=== PATIENT | male | born 1960 | race African-American/Black ===

== ENCOUNTER 2017-05-30 17:26 | Emergency (ER) | payer OTHER ==
[~2017-05-30] VITALS: Ht 167.6 cm; Wt 70.0 kg
[2017-05-30 17:32] VITALS: BP 110/65; PULSE 72; RESP 18; TEMP 97.9; O2SAT 100
[2017-05-30 17:36] VITALS: BP 110/65; PULSE 75; RESP 18; TEMP 97.9; O2SAT 99
[2017-05-30] MEDS ORDERED: PROPARACAINE HCL 0.5% OPHT SOLN 15 ML BTL LEFT EYE ONE (18:30)
[2017-05-30] MEDS ORDERED: FLUORESCEIN SOD 1 MG STRIP LEFT EYE ONE (18:30)
[2017-05-30] MEDS ORDERED: ERYTOIN10 LEFT EYE (18:58)
--- NOTE | 2017-05-30 18:58 | PD ---
HPI Chief Complaint: Eye Problems/Injury Time Seen by Provider: 18:16 Travel History International Travel<30 days: No Contact w/Intl Traveler<30days: No Traveled to known affect area: No History of Present Illness HPI Patient is a 57 year old male who comes in complaining of irritation to his left eye. He says that he was driving with his window open and he felt something get into his eye. He says he tried to flush his eye, but still feels like something is in it. He denies any change in his vision. He denies any other complaints. Severity is mild. PFSH Past Medical History Diminished Hearing: No Tetanus Vaccination: > 5 Years Influenza Vaccination: No ?: Not Social History Alcohol Use: Yes (2 BEERS DAILY) Tobacco Use: Yes (45 PACK YEARS) Substance Use: Yes (MARIJUANA) Allergies-Medications (Allergen,Severity, Reaction): Coded Allergies: No Known Allergies (Verified Adverse Reaction, Unknown, 05/30/17) Reported Meds & Prescriptions Reported Meds & Active Scripts Active No Active Prescriptions or Reported Medications Review of Systems General / Constitutional: No: Fever Eyes: Positive: Foreign Body Sensation, No: Blurred Vision, Visual changes HENT: No: Headaches, Lightheadedness Cardiovascular: No: Chest Pain or Discomfort Respiratory: No: Shortness of Breath Gastrointestinal: No: Nausea, Vomiting Skin: No Rash, No Change in Pigmentation Neurologic: No: Weakness, Dizziness Physical Exam Narrative GENERAL: Awake and alert, in no acute distress. SKIN: Focused skin assessment warm/dry. HEAD: Atraumatic. Normocephalic. EYES: Pupils equal and round and reactive. No scleral icterus. EOMI, no foreign body seen. Injected conjunctival. ENT: Mucous membranes pink and moist. CARDIOVASCULAR: Regular rate and rhythm. No murmur appreciated. RESPIRATORY: No accessory muscle use. Clear to auscultation. Breath sounds equal bilaterally. MUSCULOSKELETAL: No obvious deformities. No clubbing. No cyanosis. No edema. NEUROLOGICAL: Awake and alert. No obvious cranial nerve deficits. Motor grossly within normal limits. Normal speech. Data Data Last Documented VS Vital Signs Date Time Temp Pulse Resp B/P (MAP) Pulse Ox O2 Delivery O2 Flow Rate FiO2 05/30/17 17:36 18 18 17:36 97.9 75 110/65 (80) 99 Room Air Orders Orders Fluorescein Strip (Dhgry-B-Kukhso A.T.) (05/30/17 18:30) Proparacaine 0.5% Opth Soln (Alcaine 0.5 (05/30/17 18:30) MDM Medical Decision Making Medical Screen Exam Complete: Yes Emergency Medical Condition: Yes Differential Diagnosis corneal abrasion vs foreign body vs conjunctivitis Narrative Course Patient is a 57-year-old male who comes in complaining of irritation to his left eye. Exam shows conjunctival injection. Fluorescein stain performed shows a corneal abrasion. Patient will be discharged with prescription for erythromycin ointment. Advised follow-up with ophthalmology. Advised to return to the ED as needed for any worsening symptoms. Diagnosis Primary Impression: Corneal abrasion Qualified Codes: S05.02XA - Injury of conjunctiva and corneal abrasion without foreign body, left eye, initial encounter Referrals: Kaleigh Howe MD Patient Instructions: Corneal Abrasion (ED), General Instructions Scripts Erythromycin Opth Oint (Erythromycin Opth Oint) 5 Mg/Gm Oint 1 APPLIC LEFT EYE QID for Infection for 7 Days, #1 TUBE 0 Refills Prov: Faviola Murrieta MD 05/30/17 Disposition: 01 DISCHARGE HOME Condition: Stable Faviola Murrieta MD May 30, 2017 18:58
== END 2017-05-30 19:12 | disposition home or self-care (01) ==
LOC: NEPD 17:26
DX: S05.02XA Injury of conjunctiva and corneal abrasion without foreign body, left eye, initial encounter (principal); X58.XXXA Exposure to other specified factors, initial encounter
CPT/HCPCS: 99283